=== PATIENT | female | born 1995 | race Two or more races ===

== ENCOUNTER 2022-07-19 03:52 | Emergency (ER) | payer OTHER ==
[~2022-07-19] VITALS: Ht 160 cm; Wt 90.0 kg
[2022-07-19] MEDS ORDERED: MORPHINE SULFATE INJ 2 MG/ml SYRG IV ONE (04:30)
[2022-07-19] MEDS ORDERED: ONDANSETRON HCL 4 MG/2 ML VIAL IV ONE (04:30)
[2022-07-19 05:15] LABS: Urine Bacteria NONE SEEN /hpf (None Seen); Urine Blood Negative /uL (Negative); Urine Specific Gravity 1.001 (1.001-1.035); Urine WBC 1 /hpf (0 - 5)
[2022-07-19 06:21] LABS: Basophils # (auto) 0.1 10 ^3/uL (0-0.2); Basophils % (auto) 0.7 % (0.0-2.0); Eosinophils # (auto) 0.1 10 ^3/uL (0-0.8); Hematocrit 44.9 % (36.0-46.0); Hemoglobin 15.3 g/dL (12.2-16.2); Lymphocytes # (auto) 2.2 10 ^3/uL (0.4-5.4); Lymphocytes % (auto) 28.9 % (10.0-50.0); Mean Corpuscular Hemoglobin 30.3 pg (28.0-32.0); Mean Corpuscular Hgb Conc. 34.1 g/dL (32.0-36.0); Mean Corpuscular Volume 88.8 fL (80.0-100.0); Monocytes # (auto) 0.6 10 ^3/uL (0-1.3); Monocytes % (auto) 8.5 % (0.0-12.0); Neutrophils # (auto) 4.6 10 ^3/uL (1.6-8.6); Neutrophils % (auto) 59.9 % (37.0-80.0); Red Blood Cells 5.06 10^6/uL (4.0-5.20); White Blood Cell 7.6 10^3/uL (4.4-10.8)
[2022-07-19 06:50] LABS: Albumin 4.5 g/dL (3.4-5.0); Calcium 8.9 mg/dL (8.5-10.1)
[2022-07-19 06:54] LABS: BUN/Creatinine Ratio 8.2; Bilirubin, Total 0.2 mg/dL (0.2-1.0); Total Protein 7.8 g/dL (6.4-8.2)
[2022-07-19] MEDS ORDERED: ACETAMINOPHEN 325 MG TAB PO ONE (08:00)
[2022-07-19 09:30] VITALS: BP 118/63
== END 2022-07-19 09:39 | disposition home or self-care (01) ==
LOC: EDBD 03:52 → ER 03:52
DX: M25.512 Pain in left shoulder (principal); M54.2 Cervicalgia; R10.2 Pelvic and perineal pain; V43.52XA Car driver injured in collision with other type car in traffic accident, initial encounter; Y93.89 Activity, other specified; Y92.89 Other specified places as the place of occurrence of the external cause; Y99.8 Other external cause status
CPT/HCPCS: 36415; 70450; 71250; 72125; 73560; 74176; 80053; 81001; 84484; 84702; 85025